=== PATIENT | male | born 1985 | race Caucasian/White ===

== ENCOUNTER 2017-01-19 15:44 | Inpatient (IN) | payer OTHER ==
[~2017-01-19] VITALS: Ht 182.8 cm; Wt 84.8 kg
--- NOTE | ~2017-01-19 | EKG ---
[place], [place] ELECTROCARDIOGRAM REPORT NAME: JOSE AUSTIN UNIT #: [id number] ROOM: [id number] DOCTOR: DARLIN XIONG MD BIRTHDATE: [birth year] DOS: 01/19/2017 TIME: 23:46 p.m. Sinus rhythm at rate of 72. Normal electrocardiogram. DARLIN XIONG MD CM:EKGRPT:ELECTROCARDIOGRAM REPORT 1914 03 DARLIN XIONG MD
[~2017-01-19 15:44] MED LIST: ATARAX,VISTARIL50 MG PO; CARBIDOPA/LEVOD1 TA1 PO; ONDANSETRON HYDR4 M1 PO; SINEMET 25-100M1 TAB PO; ZOFRAN 4 MG ED2 TAB PO
[2017-01-19 16:28] VITALS: BP 121/85
[2017-01-19 17:01] LABS: BASO % 0.6 % (0.0-1.0); EOS % 0.3 % (1.0-4.0); HEMATOCRIT 42.3 % (42.0-52.0); LYMPH # 1.4 10*3/uL (1.3-4.4); LYMPH % 22.5 % (27.0-41.0); MEAN CELL VOLUME 92.2 fl (80.0-94.0); MEAN CORPUSCULAR HGB 30.5 pg (27.0-31.0); MEAN CORPUSCULAR HGB CONC 33.1 g/dl (33.0-37.0); MEAN PLATELET VOLUME 9.7 fl (9.6-12.3); MONO # 0.4 10*3/uL (0.1-1.0); MONO % 5.6 % (3.0-9.0); NEUT # 4.5 10*3/uL (2.3-7.9); NEUT % 70.7 % (47.0-73.0); PLATELET COUNT AUTOMATED 296 10*3/uL (130-400); RED BLOOD COUNT 4.59 10*6/uL (4.50-5.90); RED CELL DISTRI WIDTH 12.7 % (0-14.5); WHITE BLOOD COUNT 6.3 10*3/uL (4.8-10.8)
[2017-01-19 17:09] LABS: INTERNATIONAL NORM RATIO 0.9 (2.0-3.5)
[2017-01-19 17:17] LABS: ALBUMIN 4.1 gm/dl (3.1-4.5); ALKALINE PHOSPHATASE 73 U/L (45-117); BILIRUBIN, TOTAL 0.4 mg/dl (0.2-1.0); BUN 7 mg/dl (7-24); CARBON DIOXIDE 29 mmol/L (21-32); CHLORIDE 107 mmol/L (98-107); EST GLOM FILT AFRICAN AMERICAN > 60 ml/min; GLUCOSE 122 mg/dL (65-99); POTASSIUM 4.8 mmol/L (3.5-5.1); SGOT/AST 39 IU/L (3-35); SGPT/ALT 53 U/L (12-78); SODIUM 142 mmol/L (136-145); TOTAL PROTEIN 7.2 gm/dL (6.4-8.2)
[2017-01-19 18:52] LABS: BILIRUBIN NEGATIVE (NEGATIVE); BLOOD NEGATIVE (NEGATIVE); CLARITY CLEAR (CLEAR); COLOR YELLOW (YELLOW); GLUCOSE NEGATIVE (NEGATIVE); KETONE NEGATIVE (NEGATIVE); LEUKO ESTERASE NEGATIVE (NEGATIVE); NITRITE NEGATIVE (NEGATIVE); PROTEIN NEGATIVE (NEGATIVE); SPECIFIC GRAVITY 1.025 (1.005-1.030); UROBILINOGEN 0.2 E.U./dl (0.2-1.0)
[2017-01-19 19:02] LABS: URINE AMPHETAMINES < 1000 (1000ng/ml); URINE BARBITURATES < 200 (200ng/ml); URINE COCAINE > 300 (300ng/ml)
[2017-01-19 19:36] LABS: BACTERIA TRACE; RBC 0-2 rbc/hpf (0-2); URINE REFLEX COMMENT NO (NO)
[2017-01-19 20:00] VITALS: BP 137/82
[2017-01-20] VITALS (7 sets, daily range): BP systolic 99–137; BP diastolic 47–90
[2017-01-21 08:00] VITALS: BP 117/59
[2017-01-21 12:00] VITALS: BP 120/64
[2017-01-21] MEDS ORDERED: ATARAX,VISTARIL50 MG PO (12:44)
[2017-01-21] MEDS ORDERED: ZOFRAN 4 MG ED2 TAB PO (12:44)
[2017-01-21] MEDS ORDERED: ROPINIROLE HYD0.5 MG PO (12:44)
[2017-01-21 16:00] VITALS: BP 112/55
[2017-01-21 20:00] VITALS: BP 151/82
[2017-01-21 23:56] VITALS: BP 143/82
[2017-01-22 08:00] VITALS: BP 123/73
== END 2017-01-22 16:15 | disposition home or self-care (01) | DRG 897 ==
LOC: 4E 15:44
PROVIDERS: Internal Medicine
DX: F11.23 Opioid dependence with withdrawal (principal); F14.10 Cocaine abuse, uncomplicated; B19.20 Unspecified viral hepatitis C without hepatic coma; F17.210 Nicotine dependence, cigarettes, uncomplicated; Z71.6 Tobacco abuse counseling; Z83.3 Family history of diabetes mellitus; Z82.49 Family history of ischemic heart disease and other diseases of the circulatory system